=== PATIENT | female | born 1970 | race Caucasian/White ===

== ENCOUNTER → 2016-10-01 | Day surgery (SDC) | payer OTHER ==
[~2016-10-01] VITALS: Ht 175.3 cm; Wt 87.2 kg
[~2016-10-01] MED LIST: *RESP: ALBUTEROL 2.5 MG/3 ML NEB (PRN) PERIprocedural Use ONLY NEB ONE; ACETAMINOPHEN 325 MG TAB ONE; ACETAMINOPHEN 325 MG TAB PO PRN; AMPICILLIN/SULBAC 3 GM/NS 100 ML IV SCH; APIX5TAB PO; BACITRACIN TOP OINT 15 GM TUBE ONE; BUSP15TA PO; BUTA1CAP PO; CARV25TA PO; DEXAMETHASONE SOD PHOS 4 MG/ML VIAL ONE; DIGO0.12 PO; DO NOT ADM ANY ANTICOAGULANT DRUGS XX PRN; FAMOTIDINE 20 MG/2 ML VIAL ONE; FIORIC PO; FURO1TAB60 PO; FURO1TAB93 PO; INSULIN HUMAN REGULAR 1,000 UNITS/10 ML VIAL SQ PRN; K-TA10TA PO; K-TA10TA5 PO; LACTATED RINGER'S 1000 ML IV SCH; LIDOCAINE 1%/EPINEPHrine 1:100,000 SOLN 30 ML VIAL ONE; METOPROLOL TARTRATE 25 MG TAB PO PRN; MIDAZOLAM HCL 2 MG/2 ML VIAL ONE; NEOSTIGMINE 3 MG/3 ML SYR IV ONE; ONDANSETRON HCL 4 MG/2 ML VIAL IV PUSH ONE; OXYMETAZOLINE HCL 0.05% 15 ML NASAL SPRAY ONE; PROPOFOL 200 MG/20 ML AMP IV ONE; SODIUM CHLORID 0.9% 500 ML BAG IV ONE; SODIUM CHLORID 0.9% 500 ML IV SCH; VENL75TA PO; VITA500T10 PO; ZINC30CA PO; ZINC30TA PO; ZYRT10TA12 PO; ePHEDrine/NS 25 MG/5 ML SYR IV ONE; fentaNYL CITRATE 250 MCG/5 ML AMP ONE
[2016-10-01 09:23] VITALS: BP 153/86; PULSE 63; RESP 20; TEMP 98; O2SAT 97
[2016-10-01 12:52] VITALS: BP 177/75; PULSE 50; RESP 18; TEMP 97.4; O2SAT 95
--- NOTE | 2016-10-13 08:53 | MP ---
cc: LIO ACUÑA M.D. DATE OF SURGERY: 10/01/[address] Lio Acuña PREOPERATIVE DIAGNOSIS Left sinonasal polyposis. POSTOPERATIVE DIAGNOSIS Left sinonasal polyposis. OPERATION PERFORMED 1. Left endoscopic total ethmoidectomy. 2. Left maxillary antrostomy with removal of maxillary sinus contents. INDICATIONS Raina Shipley is a 46-year-old woman with a history of sinonasal polyposis. 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 Fiberoptic examination shows a large polypoid mass in the ethmoid and maxillary sinus. DESCRIPTION OF OPERATION The patient was taken to OR #2 and placed in the supine position. Following induction of general anesthesia and intubation, the nose was packed bilaterally with cotton pledgets saturated in 0.05% oxymetazoline that remained in place for a period of three minutes. During this time she was prepped and draped for surgery. The packing was then removed and the nose was examined endoscopically and the polypoid tissue in the left sinuses was observed. The polypoid tissue was then injected with a total of 60 mL of 1% Xylocaine with epinephrine 1:100,000. Using Blakesley forceps the polypoid tissue in the ethmoid cells was removed and included in the specimen labeled left sinus contents. This was also cleared using the power microdebrider. When this was completed polypoid tissue remained in the maxillary ostium and sinus. This was grasped using upbiting Blakesley forceps which was rotated 90 degrees to the left and the polyps were then debrided from the left maxillary sinus. Portions of this were also removed using the power microdebrider. The maxillary ostium was enlarged during this process and inferior turbinate was preserved. When this was completed the nose was packed with cotton pledgets saturated in oxymetazoline which remained in place for a period of five minutes. The pack was then removed and a site of bleeding in the posterior ethmoid was then cauterized using suction Bovie at 35 giron. When bleeding was controlled the nose was once again packed with cotton pledgets saturated in oxymetazoline. The patient was then reversed from anesthesia and taken to Recovery in good condition. There were no complications. Blood loss was 60 mL. The cotton pledgets were removed prior to the patient's departure from the recovery area, approximately one hour later. MD SHERRY Serrano/PRISCILLA /6:21 AM /8:46 AM
== END | disposition home or self-care (01) ==
LOC: HSDC 08:27
PROVIDERS: ATTEND Otolaryngology
DX: J33.0 Polyp of nasal cavity (principal); R09.81 Nasal congestion; J32.0 Chronic maxillary sinusitis; J32.2 Chronic ethmoidal sinusitis; J33.8 Other polyp of sinus
CPT/HCPCS: 00160; 31255; 31267; 88304; 94664; J0295; J1100; J2250; J2405; J2710; J3010; J7040; J7120; J7613; 88305; 88311